=== PATIENT | male | born 1985 | race Caucasian/White ===

== ENCOUNTER 2019-12-05 04:27 | Emergency (ER) | payer OTHER, BC ==
[~2019-12-05] VITALS: Ht 190.5 cm; Wt 85.7 kg
[~2019-12-05 04:27] MED LIST: ALBU90OI INH; HYDACE5 PO; IBUP800 PO; PROM25 PO; Pepcid20 MG PO; SILSUL1TC TOP; Ultram50 MG PO; Zofran Odt8 MG SL
== END 2019-12-05 05:23 | disposition home or self-care (01) ==
LOC: ER 04:27
DX: H10.213 Acute toxic conjunctivitis, bilateral (principal); J45.909 Unspecified asthma, uncomplicated; Z88.0 Allergy status to penicillin; Z88.5 Allergy status to narcotic agent
CPT/HCPCS: 99283